=== PATIENT | male | born 1955 | race American Indian/Alaskan Native ===

== ENCOUNTER 2016-10-23 23:34 | Emergency (ER) | payer OTHER ==
[2016-10-23 23:57] VITALS: BP 149/80
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
[2016-10-24] MEDS ORDERED: TYLENOL PO ONE (04:55)
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
== END 2016-10-24 07:00 | disposition home or self-care (01) ==
LOC: ED 23:34
DX: R07.81 Pleurodynia (principal); M25.511 Pain in right shoulder; I10 Essential (primary) hypertension; E11.9 Type 2 diabetes mellitus without complications; V89.2XXA Person injured in unspecified motor-vehicle accident, traffic, initial encounter; Y93.9 Activity, unspecified; Y92.481 Parking lot as the place of occurrence of the external cause; Y99.9 Unspecified external cause status
CPT/HCPCS: 99283

== ENCOUNTER 2019-08-31 06:31 | Emergency (ER) | payer MEDICARE, OTHER ==
[2019-08-31 06:39] VITALS: BP 153/80
--- NOTE | 2019-08-31 08:48 | Emergency Department Report ---
ED General Adult HPI - General Chief complaint: Extremity Injury, Lower Stated complaint: FOOT PAIN (BOTH) Time Seen by Provider: 08/31/19 07:52 Source: patient Mode of arrival: Ambulatory Limitations: No Limitations - History of Present Illness Initial comments: This is a 64-year-old -[place] male who presents to the emergency room with right foot pain from callus. Past medical history of diabetes type 2, BPH, and hypertension. Patient states his insurance switch from [employer] to Medicare and unable to follow-up with a primary care doctor and mix chemist for continued care. He reports seeing a mix chemist for 1 year for callus to right foot and states pain improve but worsened over the past 2-3 weeks. He reports pain is worse with ambulation. He also reports taking scanned that is peeling to right dorsal foot and right third dorsal toe. Onset/Timin -: week(s) Location: lower extremity (right 3rd toe) Radiation: non-radiation Severity scale (0 -10): 7 Quality: aching Consistency: intermittent Improves with: none Worsens with: movement, other (walking) Associated Symptoms: denies other symptoms Treatments Prior to Arrival: none - Related Data Previous Rx's Medication Instructions Recorded Last Taken Type Cyclobenzaprine [Flexeril] 10 mg PO TID PRN #12 tablet 10/24/16 Unknown Rx Ibuprofen [Motrin] 400 mg PO Q8H PRN #20 tablet 10/24/16 Unknown Rx Allergies Allergy/AdvReac Type Severity Reaction Status Date / Time lisinopril Allergy Shortness Verified 08/31/19 06:59 of Breath ED Review of Systems ROS: Stated complaint: FOOT PAIN (BOTH) Other details as noted in HPI Constitutional: denies: chills, fever Respiratory: denies: cough, shortness of breath, wheezing Cardiovascular: denies: chest pain, palpitations Gastrointestinal: denies: abdominal pain, nausea, diarrhea Musculoskeletal: arthralgia (right foot pain) Skin: lesions (right 3rd distal toe and dorsal callus). denies: rash Neurological: denies: headache, weakness, paresthesias Psychiatric: denies: anxiety, depression ED Past Medical Hx - Past Medical History Previous Medical History?: Yes Hx Hypertension: Yes Hx Diabetes: Yes - Surgical History Past Surgical History?: Yes Additional Surgical History: ROTATOR CUFF - Social History Smoking Status: Never Smoker - Medications Home Medications: Home Medications Medication Instructions Recorded Confirmed Last Taken Type Cyclobenzaprine [Flexeril] 10 mg PO TID PRN #12 tablet 10/24/16 Unknown Rx Ibuprofen [Motrin] 400 mg PO Q8H PRN #20 tablet 10/24/16 Unknown Rx ED Physical Exam - General Limitations: No Limitations General appearance: alert, in no apparent distress, obese - Respiratory Respiratory exam: Present: normal lung sounds bilaterally. Absent: respiratory distress - Cardiovascular Cardiovascular Exam: Present: regular rate, normal rhythm. Absent: systolic murmur, diastolic murmur, rubs, gallop - GI/Abdominal GI/Abdominal exam: Present: soft, normal bowel sounds - Extremities Exam Extremities exam: Present: full ROM, normal capillary refill. Absent: pedal edema, joint swelling, calf tenderness - Expanded Lower Extremity Exam Right Upper Leg exam: Present: normal inspection, full ROM Knee exam: Present: normal inspection, full ROM Lower Leg exam: Present: normal inspection, full ROM Ankle exam: Present: normal inspection, full ROM Foot/Toe exam: Present: full ROM. Absent: swelling, ecchymosis, deformity, crepidus, calcaneal tenderness, tenderness at base of 5th metatarsal, nail avul boston Neuro vascular tendon exam: Present: no vascular compromise Gait: Positive: observed and normal - Neurological Exam Neurological exam: Present: alert, oriented X3, normal gait - Psychiatric Psychiatric exam: Present: normal affect, normal mood - Skin Skin exam: Present: warm, dry, intact, normal color, other. Absent: rash ED Course Vital Signs 08/31/19 06:36 Temperature 97.7 F Pulse Rate 73 Respiratory 18 Rate Blood Pressure 153/80 O2 Sat by Pulse 97 Oximetry Critical care attestation.: If time is entered above; I have spent that time in minutes in the direct care of this critically ill patient, excluding procedure time. ED Disposition Clinical Impression: Right foot pain, Callus of foot Disposition: DC-01 TO HOME OR SELFCARE Is pt being admited?: No Condition: Stable Instructions: Arthralgia (ED) Additional Instructions: Follow up with her primary care doctor for continued care. I have also provided podiatry referral for follow-up. Return to the emergency room if worsening symptoms. Referrals: STEVEN DOUGLASS MD [Staff Physician] - 3-5 Days BASIM YORK DPM [Staff Physician] - 3-5 Days [facility] [Provider Group] - 3-5 Days PAIGE MELÉNDEZ MD [Staff Physician] - 3-5 Days Time of Disposition: 08:49
== END 2019-08-31 09:23 | disposition home or self-care (01) ==
LOC: ED 06:31
DX: L84 Corns and callosities (principal); M79.671 Pain in right foot; I10 Essential (primary) hypertension; E11.9 Type 2 diabetes mellitus without complications
CPT/HCPCS: 99281

== ENCOUNTER 2019-11-15 08:50 | Emergency (ER) | payer MEDICARE ==
[2019-11-15 09:02] VITALS: BP 162/77
--- NOTE | 2019-11-15 09:39 | Emergency Department Report ---
ED Extremity Problem HPI - General Chief complaint: Extremity Problem,Nontraumatic Stated complaint: LEFT LEG PAIN Time Seen by Provider: 11/15/19 09:15 Source: patient Mode of arrival: Ambulatory Limitations: No Limitations - History of Present Illness Initial comments: 64-year-old male presents to the ER today complaining of bleeding from the lateral aspect of his left ankle. Patient states that he had a small scab that had developed in the area of his ankle. He states that he picked the scab this morning and after he did started bleeding severely from the scab. He states that he called 911 who applied a dressing to area. Since arriving to ED bleeding has been controlled. He denies any pain. He reports similar symptoms in past. He is not on any blood thinners. He reports no other symptoms at this time. MD Complaint: other (Bleeding from left ankle) -: Sudden Location: left, other (Ankle ) History of Same: Yes -: No myalgia, No arthralgia, No fever, No associated chest pain Radiation: none Severity scale (0 -10): 0 Consistency: constant Improves with: other (Pressure) Worsens with: walking Associated Symptoms: denies: denies other symptoms, chest pain, shortness of breath, fever, myalgias, arthralgias, rash - Related Data Previous Rx's Medication Instructions Recorded Last Taken Type Cyclobenzaprine [Flexeril] 10 mg PO TID PRN #12 tablet 10/24/16 Unknown Rx Ibuprofen [Motrin] 400 mg PO Q8H PRN #20 tablet 10/24/16 Unknown Rx Allergies Allergy/AdvReac Type Severity Reaction Status Date / Time lisinopril Allergy Shortness Verified 08/31/19 06:59 of Breath ED Review of Systems ROS: Stated complaint: LEFT LEG PAIN Other details as noted in HPI Constitutional: denies: chills, fever Respiratory: denies: cough, shortness of breath, SOB with exertion, SOB at rest, stridor, wheezing Cardiovascular: denies: chest pain, palpitations, dyspnea on exertion, edema Gastrointestinal: denies: nausea, vomiting, diarrhea Musculoskeletal: denies: joint swelling, arthralgia Skin: rash (scab left ankle) Neurological: denies: headache, weakness, numbness, paresthesias, confusion, abnormal gait, vertigo Hematological/Lymphatic: easy bleeding ED Past Medical Hx - Past Medical History Previous Medical History?: Yes Hx Hypertension: Yes Hx Diabetes: Yes - Surgical History Past Surgical History?: Yes Additional Surgical History: Rotator cuff. colon surgery. sinus surgery - Social History Smoking Status: Never Smoker Substance Use Type: Marijuana - Medications Home Medications: Home Medications Medication Instructions Recorded Confirmed Last Taken Type Cyclobenzaprine [Flexeril] 10 mg PO TID PRN #12 tablet 10/24/16 Unknown Rx Ibuprofen [Motrin] 400 mg PO Q8H PRN #20 tablet 10/24/16 Unknown Rx ED Physical Exam - General Limitations: No Limitations General appearance: alert, in no apparent distress - Head Head exam: Present: atraumatic, normocephalic - Eye Eye exam: Present: normal appearance - Respiratory Respiratory exam: Absent: respiratory distress - Cardiovascular Cardiovascular Exam: Present: regular rate - Extremities Exam Extremities exam: Present: other (small amt of dried blood noted lateral aspect of left foot at base and mildly around lateral aspect of left ankle. there is a very tiny excoriated area noted just below the lateral malleoulus but no active bleeding. Patient has lots of varicose veins to foot and ankle and legs. No swelling, no signs of infection no ttp. ) ED Course Vital Signs 11/15/19 08:57 Temperature 98.1 F Pulse Rate 69 Respiratory 18 Rate Blood Pressure 162/77 O2 Sat by Pulse 98 Oximetry ED Medical Decision Making - Medical Decision Making Bleeding likely secondary from small varicose veins. Bleeding has been controlled since arriving in ED but pt concerned that bleeding likely to start again since it has happended before and so Cob[place] dressing applied and pt instructed to elevate leg when home and leave dressing place for about 24hrs. Pt instructed to f/u with PCP. He was instructed on what to do if bleeding starts again but if bleeding is uncontrollable to return to ED. Patient was stable at time of d/c. Critical care attestation.: If time is entered above; I have spent that time in minutes in the direct care of this critically ill patient, excluding procedure time. ED Disposition Clinical Impression: Bleeding from varicose vein Disposition: DC-01 TO HOME OR SELFCARE Is pt being admited?: No Does the pt Need Aspirin: No Condition: Stable Instructions: Varicose Veins (ED) Additional Instructions: Leave dressing in place for the next 24hrs. Elevate your leg as much as possible. If bleeding starts again, recommend applying pressure to area and elevating leg immediately. If bleeding is uncontrollable return to ED. Recommend f/u with PCP for possible referral to vein specialist. Referrals: PAIGE MELÉNDEZ MD [Staff Physician] - 3-5 Days Time of Disposition: 09:37
== END 2019-11-15 09:41 | disposition home or self-care (01) ==
LOC: ED 08:50
DX: I83.892 Varicose veins of left lower extremity with other complications (principal); I10 Essential (primary) hypertension; E11.9 Type 2 diabetes mellitus without complications; Z88.8 Allergy status to other drugs, medicaments and biological substances
CPT/HCPCS: 99282

== ENCOUNTER 2020-09-04 09:37 | Emergency (ER) | payer MEDICARE, OTHER ==
[2020-09-04] MEDS ORDERED: KETOROLAC 60 MG/2 ML INJ IM ONE (09:40)
[2020-09-04 09:45] VITALS: BP 159/81
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
== END 2020-09-04 12:39 | disposition home or self-care (01) ==
LOC: ED 09:37
DX: S16.1XXA Strain of muscle, fascia and tendon at neck level, initial encounter (principal); I10 Essential (primary) hypertension; E11.9 Type 2 diabetes mellitus without complications; F12.10 Cannabis abuse, uncomplicated; Z79.899 Other long term (current) drug therapy; X58.XXXA Exposure to other specified factors, initial encounter; Y93.89 Activity, other specified; Y92.89 Other specified places as the place of occurrence of the external cause; Y99.8 Other external cause status
CPT/HCPCS: 72040; 96372; 99283; J1885

== ENCOUNTER 2020-11-28 21:10 | Emergency (ER) | payer MEDICARE, OTHER ==
[2020-11-28 21:51] LABS: Basophils % (Auto) 0.3 % (0.0-1.8); Eosinophils # (Auto) 0.5 K/mm3 (0.0-0.4); Eosinophils % (Auto) 5.3 % (0.0-4.3); Hematocrit 39.5 % (35.5-45.6); Hemoglobin 13.5 gm/dl (11.8-15.2); Lymphocytes # (Auto) 1.5 K/mm3 (1.2-5.4); Lymphocytes % (Auto) 17.3 % (13.4-35.0); Mean Corpuscular HGB Conc 34 % (32-34); Mean Corpuscular Volume 95 fl (84-94); Monocytes # (Auto) 0.8 K/mm3 (0.0-0.8); Monocytes % (Auto) 8.5 % (0.0-7.3); Platelet Count 311 K/mm3 (140-440); Red Blood Count 4.18 M/mm3 (3.65-5.03); Red Cell Distribution Width 12.8 % (13.2-15.2)
[2020-11-28 22:04] LABS: INR 1.01 (0.87-1.13)
[2020-11-28 22:05] LABS: Partial Thromboplastin Time 24.8 Sec. (24.2-36.6)
[2020-11-28 22:11] LABS: Alanine Aminotransferase 18 units/L (7-56); Albumin 4.4 g/dL (3.9-5); BUN/Creatinine Ratio 18; Blood Urea Nitrogen 18 mg/dL (9-20); Hemolysis Index 8
== END 2020-11-29 01:12 ==
LOC: ED 21:10
DX: R58 Hemorrhage, not elsewhere classified (principal); Z53.21 Procedure and treatment not carried out due to patient leaving prior to being seen by health care provider
CPT/HCPCS: 36415; 80053; 82962; 85025; 85610; 85730

== ENCOUNTER 2022-04-13 06:16 | Emergency (ER) | payer OTHER, MEDICARE ==
[2022-04-13 07:42] VITALS: BP 134/65
[2022-04-13] MEDS ORDERED: KETOROLAC 10 MG TAB PO ONE (10:22)
[2022-04-13] MEDS ORDERED: ACETAMINOPHEN W/CODEINE 300-30 MG TAB PO ONE (10:22)
[2022-04-13] MEDS ORDERED: CYCLOBENZAPRINE 10 MG TAB PO ONE (10:22)
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
--- NOTE | 2022-04-13 12:27 | XRay Report ---
Cervical spine, 4 views HISTORY: Neck pain COMPARISON: None FINDINGS: Cervical spinal alignment is preserved. Moderate-severe multilevel disc space height loss. No evidenc e of fracture. Prevertebral soft tissues are within normal limits. IMPRESSION: No acute findings Signer Name: Ming Ramires MD Signed: 04/13/2022 12:23 PM Workstation Name: [id number]
== END 2022-04-13 14:55 | disposition home or self-care (01) ==
LOC: ED 06:16
DX: M54.2 Cervicalgia (principal); R51.9 Headache, unspecified; I10 Essential (primary) hypertension; E11.9 Type 2 diabetes mellitus without complications; Z91.09 Other allergy status, other than to drugs and biological substances; V89.2XXA Person injured in unspecified motor-vehicle accident, traffic, initial encounter; Y93.89 Activity, other specified; Y92.89 Other specified places as the place of occurrence of the external cause; Y99.8 Other external cause status
CPT/HCPCS: 72040; 99283